=== PATIENT | female | born 1980 | race Caucasian/White ===

== ENCOUNTER 2020-02-15 10:29 | Emergency (ER) | payer BC ==
[~2020-02-15] VITALS: Ht 167.6 cm; Wt 72.7 kg
[~2020-02-15 10:29] MED LIST: IBU800 M1 PO; LOPRESSOR 550 MG/TAB PO; NO HOME MEDICATIONS; PERCOCET 325 MG1 TA2 PO; PRENATAL; TOPROL XL 50MG50 MG PO; ZOFRAN 4MG T4 MG/TAB BC
[2020-02-15 10:37] VITALS: TEMP 97
[2020-02-15] MEDS ORDERED: CARTIA XT120 MG PO (11:02)
[2020-02-15] MEDS ORDERED: ZOFRAN 4MG T4 MG/TAB PO (12:22)
[2020-02-15 12:51] VITALS: BP 128/83; PULSE 83
== END 2020-02-15 12:50 | disposition home or self-care (01) ==
LOC: COL.ER 10:29
DX: U07.1 COVID-19 (principal); O98.519 Other viral diseases complicating pregnancy, unspecified trimester; Z3A.00 Weeks of gestation of pregnancy not specified